=== PATIENT | female | born 1975 ===

== ENCOUNTER 2024-01-18 11:49 | Outpatient (AMB) | payer MEDICARE, MEDICAID, SELFPAY ==
--- NOTE | 2024-01-18 11:55 | A.OFFVIS_ITS ---
VS Expanded 01/18/24 11:58 Height 5 ft 4 in Weight 93 lb 14.671 oz BMI 16.1 Intake Visit Reasons: Weight loss/CONFIRMED Nutrition Presentation Details: Pt presents for MNT for weight loss. Pt was referred by Dr. Mahin Ibarra from [facility] Pt reports she lives by herself, reports having enough money for food Reports having unintended weight loss Denies food allergies Wt hx 09/2023 at 107 lbs 6 oz 12/21/23 at 100 lbs 12/29/23 at 95lbs 6 oz 5.23.24 at 93 lbs 12.8 oz 01/12/24 at 93 lbs TODAY 01/18/24 at 93 lbs 14.6 oz constipation/diarrhea: Pt reports only when taking laxatives - did not offer additional explanation on frequency, complains about abdominal abnormality . Noted Pt was referred to reclamation kettle tender and Pt reports aware of reclamation kettle tender appt vomiting: denies Typical meal intake: coffee with whole milk and 2 sugars and activia yogurt strawberry (est 120 hieu ) Lucnh: bag of chips or pretzels, no dips and regular soda , can - reports having one a day ( est 300 calories) dinner: stuffed pepper and 1 cup of milk ( est 500 calories snack bowl of ice cream or Popsicle (hieu varies from 80-300) physical activity : daily life activities ETOH occ 1-2 drinks smoking since age 10 , uses e cig occ Meds: Crestor 40 mg/d Levothyroxine 175 mcg/day ferrous sulfate 324 mg /day metoprolo 25 mg , 2 tabs/day asa 81 mg/d mexitil 150 mg , 1 capsule 3 times a day BS Monitoring Most Recent Diabetes Results: No Data to Display Diagnosis Nutrition problem #1: underweight As related to (etiology) #1: increased energy needs (+ may be using laxative inappropiately ) As evidenced by (sign/symptom) #1: est intake less than need, low BMI (16.1 on 01/2024) and weight loss (about 13 lbs since 09/2023) Monitoring/Goals Nutrition problem monitoring: total energy intake, level of knowledge/skill, total PRO intake, weight and oral fluids Nutrition goal/outcome: wt gain 5lbs in 2 months Outcome progress: verbalized understanding Learning/Education Readiness to learn: good Stages of change: contemplation Educational materials provided: Yes (meal planning, nutritional supplements) PFSH Medical History (Updated 01/19/24 @ 10:[address], LDN) Leakage of nephrostomy catheter Arrhythmia Depression Graves disease Myotonic dystrophy Hypothyroidism (acquired) Fibroid uterus Anemia Smoker Hyperlipidemia Mass of left breast Paroxysmal A-fib Other chest pain Non-ischemic cardiomyopathy Surgical History (Updated 01/19/24 @ 10:[address], LDN) History of tubal ligation H/O: hysterectomy History of eye surgery Assessment & Plan Assessment & Plan (1) Weight loss, unintentional: Code(s): R63.4 - Abnormal weight loss Category: Medical Plan: -Gradually work on increasing calories from protein foods due to inadequate protein intake as per typical food intake recall. Pt verbalized understanding food sources of protein and mentioned various protein sources of foods she likes (cheese, eggs, poultry, deli meat, peanut butter, protein powder) - work on keeping hydrated and gradually including fiber rich foods in diet related to Pt reports of taking laxative , although Pt did not expand on frequency of laxative use Pt may be constipated due to lack of nutrition, lack of hydration and iron supplements due to anemia dx wt: 42.6 (01/2024) est kcal needs : 3300 (as per 30 kcal /kg BW + 1000- 2000 calories to p romote weight gain) est protein needs: 51 g (kg bw x 1.2 or 30 % of total calories consumed as Pt increases in caloric intake) est fluid intake as per 30 ml/kg bw: 1300 ml/d and (increase fluid needs may need to be required as Pt increases fiber and total caloric intake to prevent constipation) Patient Instructions: work on increasing nutrient intake by adding protein to the meals -have yogurt in the morning as established plus * 1 slice of whole wheat bread with 1-2 scrambled eggs with a cup of whole milk * 1/2 cup of oatmeal or 2 packets of oatmeal made with 1 cup of milk or more and raisins and honey -Have chips or pretzels at lunch as established PLUs dip for chiips and pretzels like hummus or peanut butter AND sandwich on 100 % whole wheat bread with a choice of protein ( 3 slice of deli meat and 1 slice of cheese or 1 pouch of chicken or tuna with dressing or burger AND add spinach /tomatoes/kale/green beans, choose a vegetable that you like Drink whole milk or juices with meals , keeping hydrated -snack: make a smoothie with ice cream : add 2 tbsp of peanut butter or 1 scoop of whey protein powder and add whole milk to thin it out keep a food record and bring to next follow up for review Coding Level of Care Code Nutr Indiv Intake (77750) Diagnoses Weight loss, unintentional R63.4 Time Spent (min) 30
[2024-01-18 11:58] VITALS: BMI 16.1
== END 2024-01-18 12:23 | disposition home or self-care (01) ==
PROVIDERS: Visit Provider Dietitian, Registered
DX: R63.4 Abnormal weight loss (principal)

== ENCOUNTER → 2024-01-18 11:49 | Outpatient (BNVA) | payer MEDICARE, MEDICAID, SELFPAY | PROVIDERS: Visit Provider Dietitian, Registered | DX: R63.4 Abnormal weight loss (principal) | CPT/HCPCS: 97802 ==

== ENCOUNTER 2024-02-02 13:01 | Outpatient (AMB) | payer MEDICARE, MEDICAID, SELFPAY ==
[2024-02-02 13:00] VITALS: BMI 16.3
--- NOTE | 2024-02-02 13:00 | A.OFFVIS_ITS ---
VS Expanded 02/02/24 13:00 Height 5 ft 4 in Weight 95 lb 3.835 oz BMI 16.3 Intake Visit Reasons: Weight loss/LVM Nutrition Presentation Details: Pt presents for MNT f/u for underweight. keeping food record having 3 meals a day and snacks breakfast oatmeal made water snack: proteins shake lunch:s spaghetti and meat balls, canned, dinner: 1/2 chicken pot pie , soda snack : ice cream Pt reports feeling well, comfortable BS Monitoring Most Recent Diabetes Results: No Data to Display [facility] Medical History (Updated 01/19/24 @ 10:[address], LDN) Leakage of nephrostomy catheter Arrhythmia Depression Graves disease Myotonic dystrophy Hypothyroidism (acquired) Fibroid uterus Anemia Smoker Hyperlipidemia Mass of left breast Paroxysmal A-fib Other chest pain Non-ischemic cardiomyopathy Surgical History (Updated 01/19/24 @ 10:[address], LDN) History of tubal ligation H/O: hysterectomy History of eye surgery Assessment & Plan Assessment & Plan (1) Weight loss, unintentional: Code(s): R63.4 - Abnormal weight loss Category: Medical Plan: -Gradually work on increasing calories from protein foods due to inadequate protein intake as per typical food intake recall. Pt verbalized understanding food sources of protein and mentioned various protein sources of foods she likes (cheese, eggs, poultry, deli meat, peanut butter, protein powder) - work on keeping hydrated and gradually including fiber rich foods in diet related to Pt reports of taking laxative , although Pt did not expand on frequency of laxative use Pt may be constipated due to lack of nutrition, lack of hydration and iron supplements due to anemia dx wt: 42.6 (01/2024), 43.1 kg (02/02/24) est kcal needs : 3300 (as per 30 kcal /kg BW + 1000- 2000 calories to promote weight gain) est protein needs: 51 g (kg bw x 1.2 or 30 % of total calories consumed as Pt increases in caloric intake) est fluid intake as per 30 ml/kg bw: 1300 ml/d and (increase fluid needs may need to be required as Pt increases fiber and total caloric intake to prevent constipation) Patient Instructions: Make oatmeal with whole milk and add honey or sugar for flavor in place of water Add a snack in between meal : chips and hummus , cottage cheese and fruit , cracker with peanut butter and glass of milk with flavors of your choice Coding Level of Care Code Nutr Indiv Subseq ([id number]) Diagnoses Weight loss, unintentional R63.4 Time Spent (min) 15
== END 2024-02-02 13:18 | disposition home or self-care (01) ==
LOC: HO.ENCR 13:01
PROVIDERS: Visit Provider Dietitian, Registered
DX: R63.4 Abnormal weight loss (principal)

== ENCOUNTER → 2024-02-02 13:01 | Outpatient (BNVA) | payer MEDICARE, MEDICAID, SELFPAY | PROVIDERS: Visit Provider Dietitian, Registered | DX: R63.4 Abnormal weight loss (principal); Z68.1 Body mass index [BMI] 19.9 or less, adult; Z71.3 Dietary counseling and surveillance | CPT/HCPCS: 97803 ==

== ENCOUNTER 2024-02-16 13:23 | Outpatient (AMB) | payer MEDICARE, MEDICAID, SELFPAY ==
[2024-02-16 13:26] VITALS: BMI 16.4
--- NOTE | 2024-02-16 13:26 | MHC.AMNUTRGE ---
VS Expanded 02/16/24 13:26 Height 5 ft 4 in Weight 95 lb 7.362 oz BMI 16.4 Intake Visit Reasons: UNDERWEIGHT/LVM Nutrition Presentation Details: Pt presents for nutrition f/u for underweight Pt was referred by Dr. Mahin Ibarra Pt reports having 3 meals per day , having protein powder 1 scoop in 8 oz of whole milk with each meal meals consist of B: prot shake and bagel with cheese snack: yogurt L: ravioli and protein shake snack : fruit or crackers with peanut butter, water dinner: pasta/meat sauce or potato chicken with cheese , protein shake snack: 1 cup of dry cereal denies taking laxative reports having bowel movements 2-3 time/week BS Monitoring Most Recent Diabetes Results: No Data to Display [facility] Medical History (Updated 01/19/24 @ 10:[address], LDN) Leakage of nephrostomy catheter Arrhythmia Depression Graves disease Myotonic dystrophy Hypothyroidism (acquired) Fibroid uterus Anemia Smoker Hyperlipidemia Mass of left breast Paroxysmal A-fib Other chest pain Non-ischemic cardiomyopathy Surgical History (Updated 01/19/24 @ 10:[address], LDN) History of tubal ligation H/O: hysterectomy History of eye surgery Assessment & Plan Assessment & Plan (1) Weight loss, unintentional: Code(s): R63.4 - Abnormal weight loss Category: Medical Plan: 02/16/2024 Pt to Gradually work on increasing calories 500-1000 by increasing portion sizes and having variety of food choices 02/02/24- Pt verbalized understanding food sources of protein and mentioned various protein sources of foods she likes (cheese, eggs, poultry, deli meat, peanut butter, protein powder)- Pt including protein in each meal and also in shakes 01/18/2024 Pt to work on keeping hydrated and gradually including fiber rich foods in diet related to Pt reports of taking laxative , although Pt did not expand on frequency of laxative use Pt may be constipated due to lack of nutrition, lack of hydration and iron supplements due to anemia dx wt: 42.6 (01/2024), 43.1 kg (02/02/24), 43.2 (02/16/24) est kcal needs : 4300 (as per 30 kcal /kg BW + 2000- 3000 calories to promote weight gain) est protein needs: 51 g (kg bw x 1.2 or 30 % of total calories consumed as Pt increases in caloric intake) est fluid intake as per 30 ml/kg bw: 1300 ml/d and (increase fluid needs may need to be required as Pt increases fiber and total caloric intake to prevent constipation) Patient Instructions: Increase calories by 600-1000 daily : example have snacks in between meals cereal with milk: 2 cups of raisin bran cereal with 2 c whole milk 6 peanut butter cracker or with cheese and 2 cup of whole milk with chocolate added Donut and 2 tbsp of peanut butter or nuts tuna sandwich with cup of milk chips and cottage cheese have fruit juices with snacks Coding Level of Care Code Nutr Indiv Subseq ([id number]) Diagnoses Weight loss, unintentional R63.4 Time Spent (min) 15
== END 2024-02-16 14:09 | disposition home or self-care (01) ==
PROVIDERS: Visit Provider Dietitian, Registered
DX: R63.4 Abnormal weight loss (principal)

== ENCOUNTER → 2024-02-16 13:23 | Outpatient (BNVA) | payer MEDICARE, MEDICAID, SELFPAY | PROVIDERS: Visit Provider Dietitian, Registered | DX: R63.4 Abnormal weight loss (principal); Z68.1 Body mass index [BMI] 19.9 or less, adult | CPT/HCPCS: 97803 ==

== ENCOUNTER 2024-03-01 13:56 | Outpatient (AMB) | payer MEDICARE, MEDICAID, SELFPAY ==
[2024-03-01 14:03] VITALS: BMI 16.8
--- NOTE | 2024-03-01 14:03 | A.OFFVIS_ITS ---
VS Expanded 03/01/24 14:03 Height 5 ft 4 in Weight 98 lb 1.691 oz BMI 16.8 Intake Visit Reasons: UNDERWEIGHT/CONFIRMED Nutrition Presentation Details: Pt presents for MNT for underweight Pt brings food record, incorporating protein rich foods and combining starches/fruits with meals Today will discuss increasing portion sizes and including fats in the diet Pt reports a year ago her weight was 118-120 lbs BS Monitoring Most Recent Diabetes Results: No Data to Display [facility] Medical History (Updated 01/19/24 @ 10:[address], LDN) Leakage of nephrostomy catheter Arrhythmia Depression Graves disease Myotonic dystrophy Hypothyroidism (acquired) Fibroid uterus Anemia Smoker Hyperlipidemia Mass of left breast Paroxysmal A-fib Other chest pain Non-ischemic cardiomyopathy Surgical History (Updated 01/19/24 @ 10:[address], LDN) History of tubal ligation H/O: hysterectomy History of eye surgery Assessment & Plan Assessment & Plan (1) Weight loss, unintentional: Code(s): R63.4 - Abnormal weight loss Category: Medical Plan: 03/01/24 Gradually increase portion sizes and add 2 serving of fat in each meal 02/16/2024 Pt to Gradually work on increasing calories 500-1000 by increasing portion sizes and having variety of food choices 02/02/24- Pt verbalized understanding food sources of protein and mentioned various protein sources of foods she likes (cheese, eggs, poultry, deli meat, peanut butter, protein powder)- Pt including protein in each meal and also in shakes 01/18/2024 Pt to work on keeping hydrated and gradually including fiber rich foods in diet related to Pt reports of taking laxative , although Pt did not expand on frequency of laxative use Pt may be constipated due to lack of nutrition, lack of hydration and iron supplements due to anemia dx wt: 42.6 (01/2024), 43.1 kg (02/02/24), 43.2 (02/16/24), 44.5 (03/01/2024) est kcal needs : 4300 (as per 30 kcal /kg BW + 2000- 3000 calories to promote weight gain) est protein needs: 51 g (kg bw x 1.2 or 30 % of total calories consumed as Pt increases in caloric intake) est fluid intake as per 30 ml/kg bw: 1300 ml/d and (increase fluid needs may need to be required as Pt increases fiber and total caloric intake to prevent constipation) Patient Instructions: Add snacks in between meals * raisin bran cereal with whole milk * cookies and whole milk * fruit smoothies Increase portion sizes at breakfast by adding 1 slice of bread with peanut butter Increase portion size at dinner by adding 1/2 cup of starch (potato/rice/pasta/beans/breads Include 2 servings of fat in each meal (2 tsp oil, 2 tbs avocado, 2 tbps peanut butter, 6 olives and 1 cowart ) refer to ideas printed and discussed * Coding Level of Care Code Nutr Indiv Subseq ([id number]) Diagnoses Weight loss, unintentional R63.4 Time Spent (min) 30
== END 2024-03-01 14:31 | disposition home or self-care (01) ==
PROVIDERS: Visit Provider Dietitian, Registered
DX: R63.4 Abnormal weight loss (principal)

== ENCOUNTER → 2024-03-01 13:56 | Outpatient (BNVA) | payer MEDICARE, MEDICAID, SELFPAY | PROVIDERS: Visit Provider Dietitian, Registered | DX: R63.6 Underweight (principal); Z68.1 Body mass index [BMI] 19.9 or less, adult; Z71.3 Dietary counseling and surveillance | CPT/HCPCS: 97803 ==

== ENCOUNTER 2024-04-19 12:34 | Outpatient (AMB) | payer MEDICARE, MEDICAID, SELFPAY ==
--- NOTE | 2024-04-19 13:02 | MHC.AMNUTRGE ---
VS Expanded 04/19/24 13:03 Height 5 ft 4 in Weight 99 lb 3.2 oz BMI 17.0 Intake Visit Reasons: underweight/LVM Nutrition Presentation Details: Pt presents for MNT f/u for underweight Pt is gradually increasing food portions and not skipping meals. Pt denies vomiting, denies using laxatives Pt reports having bowel movements 2-3 times a week but hard bowels. Reports cutting down on sugar BS Monitoring Most Recent Diabetes Results: No Data to Display [facility] Medical History (Updated 01/19/24 @ 10:[address], LDN) Leakage of nephrostomy catheter Arrhythmia Depression Graves disease Myotonic dystrophy Hypothyroidism (acquired) Fibroid uterus Anemia Smoker Hyperlipidemia Mass of left breast Paroxysmal A-fib Other chest pain Non-ischemic cardiomyopathy Surgical History (Updated 01/19/24 @ 10:[address], LDN) History of tubal ligation H/O: hysterectomy History of eye surgery Assessment & Plan Assessment & Plan (1) Weight loss, unintentional: Code(s): R63.4 - Abnormal weight loss Category: Medical Plan: 04/19/24 - Choose foods higher in calories and foods with fiber. DO not reduce on sugars 03/01/24 Gradually increase portion sizes and add 2 serving of fat in each meal 02/16/2024 Pt to Gradually work on increasing calories 500-1000 by increasing portion sizes and having variety of food choices 02/02/24- Pt verbalized understanding food sources of protein and mentioned various protein sources of foods she likes (cheese, eggs, poultry, deli meat, peanut butter, protein powder)- Pt including protein in each meal and also in shakes 01/18/2024 Pt to work on keeping hydrated and gradually including fiber rich foods in diet related to Pt reports of taking laxative , although Pt did not expand on frequency of laxative use Pt may be constipated due to lack of nutrition, lack of hydration and iron supplements due to anemia dx wt: 42.6 (01/2024), 43.1 kg (02/02/24), 43.2 (02/16/24), 44.5 (03/01/2024), 45 kg (04/2024) est kcal needs : 4300 (as per 30 kcal /kg BW + 2000- 3000 calories to promote weight gain) est protein needs: 51 g (kg bw x 1.2 or 30 % of total calories consumed as Pt increases in caloric intake) est fluid intake as per 30 ml/kg bw: 1400 ml/d and (increase fluid needs may need to be required as Pt increases fiber and total caloric intake to prevent constipation) Patient Instructions: Do not cut down on sugar , ok to choose maple syrup, honey, sugar, Choose fiber rich foods : Choose raisin bran cereals , prune juice/desire juice (naked juices) , beans, lentils Add a desert with the meal (apple pie, ice cream , carrot cake) Keep hydrated by having juices, water, milk with meals Coding Level of Care Code Nutr Indiv Subseq ([id number]) Diagnoses Weight loss, unintentional R63.4 Time Spent (min) 20
[2024-04-19 13:03] VITALS: BMI 17.0
== END 2024-04-19 13:27 | disposition home or self-care (01) ==
PROVIDERS: Visit Provider Dietitian, Registered
DX: R63.4 Abnormal weight loss (principal)

== ENCOUNTER → 2024-04-19 12:34 | Outpatient (BNVA) | payer MEDICARE, MEDICAID, SELFPAY | PROVIDERS: Visit Provider Dietitian, Registered | DX: R63.4 Abnormal weight loss (principal); Z71.3 Dietary counseling and surveillance | CPT/HCPCS: 97803 ==